=== PATIENT | female | born 1995 | race Two or more races ===

== ENCOUNTER 2024-07-24 18:40 | Emergency (ER) | payer MEDICAID, OTHER ==
[~2024-07-24] VITALS: Ht 160 cm; Wt 61.0 kg
[2024-07-24 18:47] VITALS: PULSE 98; RESP 19; O2SAT 95
--- NOTE | 2024-07-24 18:49 | ED.PDOC ---
History of Present Illness HPI Comments 29 y/o F is BIBA for c/o foreign body airway obstruction. Per EMS report, patient was eating when she got a piece of beef lodged in her throat. She is stated to have vomited multiple times in addition to had abdominal thrusts performed on her and still feeling foreign body still in place. Vitals were noted to have been stable and within normal limits, with exception of a respiratory and heart rate in the 40's and 100's, respectively. Patient has no reported significatn history. She denies on having any throat pain or further associated symptoms. Chief Complaint: Foreign Body Time Seen by MD: 18:30 Reviewed Notes: Nurses Notes, Yarn Winder Notes, Medications, Allergies Allergies: Coded Allergies: NO KNOWN ALLERGIES (Unverified , 07/24/24) Information Source: Patient, Emergency Med Personnel Mode of Arrival: EMS Severity: Moderate Timing: Hours Duration: Since onset Prehospital treatment: 12 Lead EKG, Retail Salesman Past Medical History PAST MEDICAL HISTORY: Denies Surgical History: Denies all surgeries BMX RIDER History: No Pertinent BMX RIDER History Family History Family History: Unknown Social History Smoker: Non-Smoker Alcohol: Denies ETOH Use Drugs: Denies Drug Use Lives In: Home All Other Systems: Reviewed and Negative (Comprehensive systems review obtained and negative except for what is stated in the HPI.) Physical Exam Exam Comments General Appearance: No Apparent Distress, Normal HEENT: Normal ENT Inspection, Pharynx Normal, TMs Normal, Other (speaking with raspy voice) Neck: Full Range of Motion, Non-Tender, Normal, Normal Inspection Respiratory: Chest Non-Tender, Lungs Clear, No Accessory Muscle Use, No Respiratory Distress, Normal Breath Sounds, Other (tachypneic) Cardiovascular: No Edema, No JVD, No Murmur, No Gallop, Normal Peripheral Pulses, Tachycardia, Other (regular rhythm) Breast Exam: Deferred Gastrointestinal: No Organomegaly, Non Tender, No Pulsatile Mass, Normal Bowel Sounds, Soft, Other (actively vomiting) Genitalia: Deferred Pelvic: Deferred Rectal: Deferred Extremities: No calf tenderness, Normal capillary refill, Normal inspection, Normal range of motion, Non-tender, No pedal edema Musculoskeletal : Apperance: Normal Neurologic: Alert, restaurant maintenance technician II-XII nml as Tested, No Motor Deficits, Normal Affect, Normal Mood, No Sensory Deficits Cerebellar Function: Normal Reflexes: Normal Skin: Dry, Normal Color, Warm Lymphatic: No Adenopathy Was a procedure done? Was a procedure done?: No Differential Dx Considerations may include: foreign body obstructing airway, anxiety, among others X-Ray, Labs, Meds, VS Vital Signs Date Time Temp Pulse Resp B/P (MAP) Pulse Ox O2 Delivery O2 Flow Rate FiO2 07/24/24 19:30 98.1 110 16 115/88 (97) 99 98.1 07/24/24 19:06 84 07/24/24 18:47 98 19 95 Room Air* 0 21 07/24/24 18:47 98 19 113/90 (98) 95 07/24/24 18:43 97.3 107 40 140/70 (93) 98 97.3 Current Medications Medications (Trade) Dose Ordered Sig/Mar Route Start Time Stop Time Status Last Admin Glucagon (Glucagen) 1 mg ONCE ONCE IV 07/24/24 18:45 07/24/24 18:46 DC 07/24/24 18:58 Sodium Chloride 1,000 ml @ 1,000 mls/hr Q1H ONCE IV 07/24/24 18:45 07/24/24 19:44 DC 07/24/24 18:58 Time of 1ST Reevaluation: 20:24 Reevaluation 1ST: Resolved Patient Education/Counseling: Diagnosis, Treatment, Other (need for admission ) Family Education/Counseling: No Family Present Additional Information Previous visits reviewed: N/A The following tests were ordered, and results were reviewed by me: N/A Additional Information was gathered from interviewing the following independent historians: EMS I reviewed and agreed with the following test results read by other providers: N/A I discussed treatment and results with medical personnel and: patient Departure 1 Departure Time of Disposition: 20:23 (Patient had a foreign body stuck in her throat. Patient is given glucagon and patient eventually vomited up a large stalk bronchi. Patient is now tolerating her secretions feeling well we will discharge patient home with outpatient follow up) Impression: Primary Impression: Choking due to foreign body Qualified Codes: T17.900A - Unspecified foreign body in respiratory tract, part unspecified causing asphyxiation, initial encounter Disposition: HOME / SELF CARE / HOMELESS Condition: Stable Additional Instructions: Your throat may be more sore with a normal for the next several days. You can follow up with the regular doctor next week. Discharged With: Self Critical Care Note Critical Care Time?: Yes Stability Stability form required: No Heart Score Heart Score: Heart Score Response (Comments) Value History N/A 0 EKG N/A 0 Age N/A 0 Risk Factors N/A 0 Troponin N/A 0 Total 0 I personally scribed for CLAUDE GRAMAJO MD ([email or web address]) on 07/24/24 at 18:49. Electronically submitted by Honorio Duvall ([email or web address]). CLAUDE GRAMAJO MD July 24, 2024 18:49
[2024-07-24] MEDS: GLUCAGON EMERG KIT 1mg/1ml IV ONE (18:58)
[2024-07-24] MEDS: SODIUM CHLORIDE 0.9% 1,000 ML IV ONE (18:58)
[2024-07-24 19:30] VITALS: BP 115/88; PULSE 98; RESP 19; TEMP 98.1; O2SAT 95
== END 2024-07-24 20:43 | disposition home or self-care (01) ==
LOC: ER 18:40 → EDBD 18:40 → ER 20:42
DX: T17.208A Unspecified foreign body in pharynx causing other injury, initial encounter (principal); R09.89 Other specified symptoms and signs involving the circulatory and respiratory systems; W44.9XXA Unspecified foreign body entering into or through a natural orifice, initial encounter; Y93.89 Activity, other specified; Y92.89 Other specified places as the place of occurrence of the external cause; Y99.8 Other external cause status
CPT/HCPCS: 96361; 96374; 99283; J1610; J7030